=== PATIENT | female | born 1955 | race Caucasian/White ===

== ENCOUNTER 2019-12-06 12:20 | Observation (INO) | payer SELFPAY ==
[~2019-12-06] VITALS: Ht 175.3 cm; Wt 74.8 kg
[~2019-12-06 12:20] MED LIST: LISINOPRIL20 MG PO
[2019-12-06 12:51] LABS: BASOPHILS % 0.5 % (0.0-1.0); EOSINOPHILS # (AUTO) 0.1 (0.0-0.4); EOSINOPHILS % 0.7 % (0.0-6.0); HEMATOCRIT 40.2 % (34.2-44.1); HEMOGLOBIN 13.6 g/dL (12.0-16.0); LYMPHOCYTES # (AUTO) 1.6 (1.0-3.2); LYMPHOCYTES % 18.6 % (18.0-39.1); MEAN CORPUSCULAR HEMOGLOBIN 29.3 pg (28-32); MEAN CORPUSCULAR HGB CONC 33.8 g/dL (31-35); MEAN CORPUSCULAR VOLUME 86.6 fL (81-99); MONOCYTES # (AUTO) 0.6 (0.2-0.8); MONOCYTES % 7.2 % (4.4-11.3); NEUTROPHILS # (AUTO) 6.2 (2.1-6.9); NEUTROPHILS % 72.6 % (38.7-80.0); PLATELET COUNT 268 x10e3/uL (140-360); RED BLOOD COUNT 4.64 x10e6/uL (3.6-5.1); RED CELL DISTRIBUTION WIDTH 12.1 % (11.7-14.4)
--- OUTSIDE RECORDS SUMMARY | 2019-12-06 13:00 | XMS REPORT | Continuity of Care Document ---
Author Author [facility] t Organization [facility] Address [address] [place]. [address] [place] [id number] Phone Unavailable Care Team Providers Care Field Service Engineer Name Role Phone Jacky LOZANO Attphys Unavailable Problems This patient has no known problems. Allergies, Adverse Reactions, Alerts This patient has no known allergies or adverse reactions. Medications This patient has no known medications. Procedures This patient has no known procedures. Results Test Description Test Time Test Comments Results Result Comments Source CT BRAIN WO [address] [address] Patient Name: EFE DEE MR #: [id number] : 1955 Age/Sex: 61/F Req #: [id number] Adm Physician: Ordered by: YUE LOZANO MD Report #: [id number] Location: CT Room/Bed: Procedure: [id number] CT/CT BRAIN WO Exam Date: 02/04/17 Exam Time: 1455 REPORT STATUS: Signed History: Dizziness and giddiness Comparison studies: None Technique: Axial images were obtained from the skull base to the vertex. Coronal and sagittal reconstructions obtained from the axial data. Findings: Scalp/skull: No abnormalities. No fractures, blastic or lytic lesions. Extra-axial spaces: No masses. No fluid collections. Brain sulci: Appropriate for age. Ventricles: Normal in size and configu ration. No hydrocephalus. Parenchyma: No abnormal densities. No masses, hemorrhage, acute or chronic cortical vascular insults. Sellar/suprasellar region: No abnormalities Craniocervical junction: Patent foramen magnum. No Chiari one malformation. IMPRESSION: No abnormalities. Signed by: Dr. Steven Jackson M.D. on 02/04/2017 5:27 PM Dictated By: STEVEN JACKSON MD, MD 26 Transcribed By: TUCKER on 02/04/171726 COPY TO: YUE LOZANO MD
[2019-12-06 13:01] LABS: INR 0.84; PROTHROMBIN TIME 11.9 seconds (11.9-14.5)
[2019-12-06 13:10] LABS: ALANINE AMINOTRANSFERASE 23 IU/L (0-55); ALBUMIN 4.5 g/dL (3.5-5.0); ALBUMIN/GLOBULIN RATIO 1.6 (0.8-2.0); ALKALINE PHOSPHATASE 84 IU/L (40-150); ANION GAP 14.5 mmol/L (8-16); BLOOD UREA NITROGEN 15 mg/dL (7-26); BUN/CREATININE RATIO 17 (6-25); CALCIUM 9.1 mg/dL (8.4-10.2); CARBON DIOXIDE 24 mmol/L (22-29); CHLORIDE 107 mmol/L (98-107); CREATININE, SERUM 0.89 mg/dL (0.57-1.11); EST GLOMERULAR FILTRATION RATE > 60 ML/MIN (60-); GLUCOSE 98 mg/dL (74-118); POTASSIUM 3.5 mmol/L (3.5-5.1); SODIUM 142 mmol/L (136-145)
--- NOTE | 2019-12-06 13:14 | Emergency Department Note ---
History of Present Illnes History of Present Illness Chief Complaint: Neurological History of Present Illness This is a 64 year old female Chief Complaint Comment 64 y/o female presents to ED via EMS for sudden onset of short term memory loss @ approx 1000. Pt asking the same 5 questions repeatedly, cannot remember date, month, insurance. Pt moving all extremities, no neuro deficits except short term memory loss. Can remember name, , and family members. 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 Any updates have been documented here. Past Medical History Recent Fever: No Clinical Suspicion of Infectio: No New/Unexplained Change in Ment: Yes Other Medical History: does not remember medical hx Other Surgery: does not remember surgical Other Last Tetanus: UNK Review of Systems Review of Systems Constitutional: Reports no symptoms EENTM: Reports no symptoms Cardiovascular: Reports no symptoms Respiratory: Reports no symptoms Gastrointestinal: Reports no symptoms Genitourinary: Reports no symptoms Musculoskeletal: Reports no symptoms Integumentary: Reports no symptoms Neurological: Reports as per HPI, Reports other (Memory loss) Psychological: Reports no symptoms Endocrine: Reports no symptoms Hematological/Lymphatic: Reports no symptoms Physical Exam Related Data Allergies: Coded Allergies: No Known Allergies (Verified , 11/30/09) Triage Vital Signs Vital Signs Date Time Temp Pulse Resp B/P (MAP) Pulse Ox O2 Delivery O2 Flow Rate FiO2 12/06/19 12:32 98.5 67 18 183/92 100 Room Air Vital signs reviewed: Yes Physical Exam CONSTITUTIONAL Constitutional: Present well-developed, Present well-nourished HENT HENT: Present normocephalic, Present atraumatic, Present oropharynx clear/moist, Present nose normal HENT L/R: Present left ext ear normal, Present right ext ear normal EYES Eyes: Reports PERRL, Reports conjunctivae normal NECK Neck: Present ROM normal PULMONARY Pulmonary: Present effort normal, Present breath sounds normal CARDIOVASCULAR Cardiovascular: Present regular rhythm, Present heart sounds normal, Present capillary refill normal, Present normal rate GASTROINTESTINAL Abdominal: Present soft, Present nontender, Present bowel sounds normal GENITOURINARY Genitourinary: Present exam deferred SKIN Skin: Present warm, Present dry MUSCULOSKELETAL Musculoskeletal: Present ROM normal NEUROLOGICAL Neurological: Present alert, Present oriented x 3, Present no gross motor or sensory deficits; Absent cranial nerve deficit, Absent abnormal gait PSYCHOLOGICAL Psychological: Present mood/affect normal, Present judgement normal Results Laboratory Result Diagram: 12/06/19 1241 12/06/19 1241 Laboratory Laboratory Tests Test 12/06/19 12:41 White Blood Count 8.50 x10e3/uL (4.8-10.8) Red Blood Count 4.64 x10e6/uL (3.6-5.1) Hemoglobin 13.6 g/dL (12.0-16.0) Hematocrit 40.2 % (34.2-44.1) Mean Corpuscular Volume 86.6 fL (81-99) Mean Corpuscular Hemoglobin 29.3 pg (28-32) Mean Corpuscular Hemoglobin Concent 33.8 g/dL (31-35) Red Cell Distribution Width 12.1 % (11.7-14.4) Platelet Count 268 x10e3/uL (140-360) Neutrophils (%) (Auto) 72.6 % (38.7-80.0) Lymphocytes (%) (Auto) 18.6 % (18.0-39.1) Monocytes (%) (Auto) 7.2 % (4.4-11.3) Eosinophils (%) (Auto) 0.7 % (0.0-6.0) Basophils (%) (Auto) 0.5 % (0.0-1.0) Neutrophils # (Auto) 6.2 (2.1-6.9) Lymphocytes # (Auto) 1.6 (1.0-3.2) Monocytes # (Auto) 0.6 (0.2-0.8) Eosinophils # (Auto) 0.1 (0.0-0.4) Basophils # (Auto) 0.0 (0.0-0.1) Absolute Immature Granulocyte (auto 0.03 x10e3/uL (0-0.1) Prothrombin Time 11.9 seconds (11.9-14.5) Prothromb Time International Ratio 0.84 Sodium Level 142 mmol/L (136-145) Potassium Level 3.5 mmol/L (3.5-5.1) Chloride Level 107 mmol/L (98-107) Carbon Dioxide Level 24 mmol/L (22-29) Anion Gap 14.5 mmol/L (8-16) Blood Urea Nitrogen 15 mg/dL (7-26) Creatinine 0.89 mg/dL (0.57-1.11) Estimat Glomerular Filtration Rate > 60 ML/MIN (60-) BUN/Creatinine Ratio 17 (6-25) Glucose Level 98 mg/dL (74-118) Calcium Level 9.1 mg/dL (8.4-10.2) Total Bilirubin 0.5 mg/dL (0.2-1.2) Aspartate Amino Transf (AST/SGOT) 19 IU/L (5-34) Alanine Aminotransferase (ALT/SGPT) 23 IU/L (0-55) Alkaline Phosphatase 84 IU/L (40-150) Total Protein 7.4 g/dL (6.5-8.1) Albumin 4.5 g/dL (3.5-5.0) Globulin 2.9 g/dL (2.3-3.5) Albumin/Globulin Ratio 1.6 (0.8-2.0) Lab results reviewed: Yes Imaging Imaging results reviewed: Yes Diagnostics Tests Diagnostic test(s) reviewed: Yes Procedures 12 Lead ECG Interpretation ECG Interpretation : Professor Of Forestry: Interpreted by ED physician Date: Dec 06, 2019 Rhythm: sinus rhythm Rate: normal QRS axis: normal ST segments normal: Yes T waves normal: Yes Clinical Impression: non-specific ECG Assessment & Plan Medical Decision Making MDM 64-year-old female presents for impaired short-term memory. Patient shows perseveration is able to carry a conversation and is alert and oriented 3. She is not really anything that happened today or any recent events. Examination is otherwise unremarkable, no focal neurologic deficits, cranial nerves II through XII are intact. Initial differential scenario for stroke versus intoxication among others. Patient not a tPA candidate as NIH stroke scale is 1. Discussed patient with Dr. Huffman who has agreed to admission. Reassessment Reassessment time: 13:39 Reassessment unchanged Assessment & Plan Final Impression: (1) Memory loss (2) Stroke-like symptoms Depart Disposition: ADMITTED Last Vital Signs Date Time Temp Pulse Resp B/P (MAP) Pulse Ox O2 Delivery O2 Flow Rate FiO2 12/06/19 12:59 75 19 170/92 100 Room Air 12/06/19 12:32 98.5 Home Meds Reported Medications Lisinopril (PRINAVIL / ZESTRIL) 20 Mg Tablet, 20 MG PO DAILY 09/07/13 JENA DASH MD Dec 06, 2019 13:14
--- NOTE | 2019-12-06 13:27 | Diagnostic Imaging Report ---
EXAMINATION: Head CT HISTORY: 64-year-old female with right hand numbness, short-term memory loss COMPARISON: None. TECHNIQUE: Helical axial images of the head were obtained. Dose modulation, iterative reconstruction, and/or weight based adjustment of the mA/kV was utilized to reduce the radiation dose to as low as reasonably achievable. FINDINGS: Parenchyma: 1. No abnormal densities. 2. No mass or hemorrhage. No CT evidence of acute territorial vascular insult. Extra-axial spaces:No abnormal density. No extra-axial fluid collections Brain volume: Normal for age. Ventricles: No hydrocephalus or displacement. Arteries: No density suggestive of thrombus. Dural sinuses: No abnormal density. Foramen magnum: No mass, Chiari malformation, or basilar invagination. Sella: No obvious mass. Paranasal/mastoid sinuses: Imaged portions unremarkable. Skull/Scalp: No lytic or blastic lesions. No fractures. IMPRESSION: No intracranial abnormalities, particularly no hemorrhage or CT evidence of acute cortical infarct. Signed by: Dr. Camila Mari M.D. on 12/06/2019 1:24 PM
--- NOTE | 2019-12-06 13:39 | NUR ---
Pt continues to ask the same 7-10 questions repeatedly. Asking where her is, her mother, son, and father? Pt is tearful and appears very scared. This RN wrote answers to main questions on dry erase board, date and location of family members.
[2019-12-06] MEDS ORDERED: ASPIRIN 325 MG TAB PO ONE (14:00)
--- NOTE | 2019-12-06 15:23 | NUR ---
Son at bedside, brought in home meds to review. Pt can't remember her medical hx.
[2019-12-06 16:25] VITALS: BP 153/88
--- NOTE | 2019-12-06 16:25 | NUR ---
PHONE REPORT RECEIVED FROM LATRICE WATKINS, ER NURSE. PATIENT WAS TRANSPORTED PER WHEELCHAIR TO UNIT. PT AMBULATORY TO BED IN NO ACUTE DISTRESS WEARING TELEMETRY BOX #6. PATIENT STATES "I DO NOT REMEMBER WHAT HAPPENED AND I DO NOT KNOW HOW I GOT HERE". PATIENT PROVIDED MEDICATION FOR RECONCILIATION. PATIENT WAS EDUCATED ON FALL RISK PRECAUTIONS AND VERBALIZED UNDERSTANDING. CALL LIGHT AND BELONGINGS PLACED NEARBY. BED ALARM INITIATED. WILL CONTINUE TO MONITOR.
[2019-12-06 16:43] VITALS: BP 153/88
[2019-12-06] MEDS ORDERED: ALPRAZOLAM0.5 MG PO (16:54)
--- NOTE | 2019-12-06 17:00 | NUR ---
PATIENT IS UNABLE TO REMEMBER MEDICAL/SURGICAL HISTORY. PATIENT'S , CORNELIO DEE'S CONTACT PHONE NUMBER IS [phone]. I ATTEMPTED TO CONTACT SPOUSE TO COMPLETE PATIENT'S HISTORY. THERE WAS NO ANSWER, LEFT VM.
[2019-12-06 17:20] LABS: CLARITY,URINE CLEAR (CLEAR); COLOR,URINE YELLOW (YELLOW); LEUKOCYTE ESTERASE ,URINE NEGATIVE (NEGATIVE); NITRITE,URINE NEGATIVE (NEGATIVE)
[2019-12-06 17:21] LABS: AMPHETAMINES SCREEN,URINE NEGATIVE (NEGATIVE); BENZODIAZEPINES SCREEN,URINE NEGATIVE (NEGATIVE); BILIRUBIN,URINE NEGATIVE (NEGATIVE); KETONES,URINE NEGATIVE (NEGATIVE); PHENCYCLIDINE SCREEN,URINE NEGATIVE (NEGATIVE); PROTEIN,URINE DIPSTICK NEGATIVE (NEGATIVE); URINE UROBILINOGEN 0.2 mg/dL (0.2 - 1)
[2019-12-06 17:31] LABS: EPITHELIAL CELLS,URINE RARE /LPF
[2019-12-06] MEDS ORDERED: AMLODIPINE BESYL5 MG PO (17:55)
[2019-12-06] MEDS ORDERED: TRAZODONE HCL50 MG PO (17:56)
[2019-12-06] MEDS ORDERED: LOVASTATIN40 MG (18:02)
[2019-12-06] MEDS ORDERED: EFFEXOR XR 3737.5 MG (18:02)
[2019-12-06] MEDS ORDERED: VITAMIN D250 MCG PO (18:02)
[2019-12-06] MEDS ORDERED: HYDROCHLOROTH12.5 MG (18:03)
[2019-12-06 19:35] VITALS: BP 154/88
[2019-12-06 19:36] VITALS: BP 154/88
[2019-12-06 20:00] VITALS: BP 154/88
--- NOTE | 2019-12-06 20:00 | NUR ---
dysphagia screening done, 3 oz water test done. patient has no trouble swallowing. ok to give medications
--- NOTE | 2019-12-06 20:16 | NUR ---
called Dr Terrell MD ok to continue all home meds.
[2019-12-06] MEDS ORDERED: TRAZODONE HCL 50 MG TAB PO PRN (20:30)
[2019-12-06] MEDS ORDERED: ALPRAZOLAM 0.5 MG TAB PO PRN (20:30)
[2019-12-06 22:10] VITALS: BP 154/88
[2019-12-07] VITALS: BP 164/92
[2019-12-07 04:00] VITALS: BP 141/84
[2019-12-07 04:49] LABS: BASOPHILS # (AUTO) 0.1 (0.0-0.1); BASOPHILS % 0.4 % (0.0-1.0); EOSINOPHILS % 0.3 % (0.0-6.0); HEMATOCRIT 38.7 % (34.2-44.1); HEMOGLOBIN 13.1 g/dL (12.0-16.0); LYMPHOCYTES # (AUTO) 2.6 (1.0-3.2); LYMPHOCYTES % 22.7 % (18.0-39.1); MEAN CORPUSCULAR HEMOGLOBIN 30.1 pg (28-32); MEAN CORPUSCULAR HGB CONC 33.9 g/dL (31-35); MONOCYTES # (AUTO) 0.9 (0.2-0.8); MONOCYTES % 7.4 % (4.4-11.3); NEUTROPHILS # (AUTO) 7.9 (2.1-6.9); NEUTROPHILS % 68.9 % (38.7-80.0); PLATELET COUNT 248 x10e3/uL (140-360); RED BLOOD COUNT 4.35 x10e6/uL (3.6-5.1); RED CELL DISTRIBUTION WIDTH 12.3 % (11.7-14.4)
[2019-12-07 05:10] LABS: ANION GAP 15.7 mmol/L (8-16); BLOOD UREA NITROGEN 12 mg/dL (7-26); BUN/CREATININE RATIO 14 (6-25); CARBON DIOXIDE 23 mmol/L (22-29); CHLORIDE 107 mmol/L (98-107); CREATININE, SERUM 0.83 mg/dL (0.57-1.11); EST GLOMERULAR FILTRATION RATE > 60 ML/MIN (60-); GLUCOSE 90 mg/dL (74-118); POTASSIUM 3.7 mmol/L (3.5-5.1); SODIUM 142 mmol/L (136-145)
--- NOTE | 2019-12-07 06:50 | NUR ---
SBAR BEDSIDE REPORT RECEIVED FROM MEDARDO RN, PM SHIFT. PATIENT FOUND LYING IN BED COMPLAINING OF A HEADACHE. PM SHIFT NURSE MEDICATED PER MAY. PATIENT STILL DEMONSTRATES SHORT TERM MEMORY LOSS. PATIENT WAS REASSURED AND REORIENTED TO TIME, LOCATION, SITUATION. PATIENT ENCOURAGED TO RELAX WITH SOFT MUSIC THERAPY. PT WAS EDUCATED ON FALL RISK PRECAUTIONS AND VERBALIZED UNDERSTANDING. CALL LIGHT AND BELONGINGS PLACED NEARBY. WILL CONTINUE TO MONITOR.
[2019-12-07 07:17] LABS: CHOL/HDL RATIO 3.7 (3.0-3.6)
[2019-12-07 07:36] LABS: THYROID STIMULATING HORMONE 1.36 uIU/mL (0.350-4.940)
[2019-12-07 08:03] VITALS: BP 148/89
[2019-12-07 09:00] VITALS: BP 148/89
[2019-12-07] MEDS ORDERED: AMLODIPINE BESYLATE 5 MG TAB PO SCH (09:00)
[2019-12-07] MEDS: VENLAFAXINE HCL 75 MG CAPCR PO SCH (09:00)
[2019-12-07] MEDS ORDERED: HYDROCHLOROTHIAZIDE 25 MG TAB PO SCH ×2 (09:00)
[2019-12-07] MEDS ORDERED: SIMVASTATIN 20 MG TAB PO SCH (09:00)
[2019-12-07] MEDS ORDERED: LISINOPRIL 20 MG TAB PO SCH (09:00)
[2019-12-07] MEDS ORDERED: VENLAFAXINE HCL 37.5MG XR CAP PO SCH (09:00)
--- NOTE | 2019-12-07 09:20 | NUR ---
Front Maker Lockstitch referred by RN. Pt unavailable at this time. Pt on phone. I will follow up as able. JACINTA Campos Spiritual Care Department O: [phone]
--- NOTE | 2019-12-07 09:29 | History and Physical ---
CHIEF COMPLAINT: The patient came into the hospital for amnesia, which was short term. HISTORY OF PRESENT ILLNESS: A 64-year-old female with a history of hypertension, history of hyperlipidemia, history of depression, history of chronic anxiety, and low back pain, was in her usual state of health until approximately at about 10:00 a.m. yesterday. The patient was talking on the phone with a person and the patient's mother noticed that the patient did not remember any details of the conversation and/or prior events couple of minutes ago. The patient's family members called the office and was brought to the emergency room. The patient's CT scan was negative, but kept in the hospital for amnesia and also possible neurological deficits and needs a neurological evaluation. The patient was started on venlafaxine 75 mg about a week ago prior to this event, and the patient also suffers extreme depression. PAST MEDICAL HISTORY: As mentioned above, hypertension, hyperlipidemia, anxiety. FAMILY HISTORY: Positive for diabetes and hypertension. SOCIAL HISTORY: No EtOH. No IV drug abuse. She is very physically active with her horses and also lives with mother, who lives with her. REVIEW OF SYSTEMS: No chest pain. No shortness of breath. No nausea. No vomiting. No diarrhea. No constipation. No rectal bleeding. No hematochezia. No hematemesis. No blurry vision. No palpitations. No bleeding. No bleeding diathesis. No diplopia. No diaphoresis. Only symptom remains to be amnesia. PHYSICAL EXAMINATION: GENERAL: The patient is alert and oriented x3. VITAL SIGNS: Today, Temperature 98.7, pulse of 56, respirations of 18, blood pressure is 164/92, pulse oximetry of 99% on room air. HEENT: Normocephalic, atraumatic. Pupils are reactive. The patient is very alert and oriented x3 at this time. CVS: S1 and S2 normal. Regular rate and rhythm. ABDOMEN: Soft, nontender, nondistended. EXTREMITIES: No clubbing. No cyanosis. No edema. NEUROLOGICAL: Short-term memory according to the patient, which is 2 days passed or 1 week passed. IMPRESSION: 1. The patient could not remember anything or does not remember coming to my office and starting on venlafaxine. 2. Hypertension. 3. Hyperlipidemia. PLAN: Check stat lipid level today. MRI will be ordered. Echocardiogram will be ordered. Carotid Doppler will be ordered too. Imaging studies from the ED shows the brain CT with no acute intracranial abnormalities. Vitamin B12 will be ordered too. Further recommendation per clinical course and also depending on neurologic evaluation by Dr. Lange. MD MEGHANA MataJ/MODL /[id number]
--- NOTE | 2019-12-07 09:47 | NUR ---
Pt unavailable at this time. Pt having EKG. Will follow up as able. JACINTA Cadenalain Spiritual Care Department O: [phone]
--- NOTE | 2019-12-07 10:55 | NUR ---
PATIENT OFF THE FLOOR FOR MRA OF BRAIN; TELEMETRY BOX REMOVED TEMPORARILY. VICKI IN MONITOR ROOM MADE AWARE
--- NOTE | 2019-12-07 11:20 | NUR ---
PATIENT BACK TO FLOOR FROM BRAIN MRA Addendum: 12/07/19 at 1130 by Olga Lutz RN ADD: TELEMETRY REAPPLIED AND CONFIRMED WITH VICKI FOSTER
[2019-12-07 11:51] VITALS: BP 163/81
--- NOTE | 2019-12-07 12:26 | Diagnostic Imaging Report ---
Examination: MRA HEAD WO CONTRAST History: ^amnesia Comparison studies: None Technique: 3-D [id number] MR angiogram of the intracranial circulation was obtained. MIP images of the arteries were isolated into anterior and posterior intracranial circulations, 180 degree projections. Sagittal and coronal MPR images, and axial source images are available for evaluation. Findings: Internal carotid arteries: Patent. Anterior cerebral arteries: Patent A1 and A2 segments. Middle cerebral arteries: Patent M1 and M2 segments. Vertebrobasilar circulation: Patent. Posterior cerebral arteries: Patent P1 and P2 segments. Anatomical variants: Anterior communicating arteries: Patent Posterior communicating arteries: Not visualized bilaterally. Vertebral arteries:Codominant. IMPRESSION: No intracranial arterial stenosis or occlusion or vascular malformation. Signed by: Dr. Treva Bedoya M.D. on 12/07/2019 12:23 PM
--- NOTE | 2019-12-07 15:49 | NUR ---
TOLD TO CALL WITH INSURANCE INFORMATION TO AVOID GETTING THE BILL, HE STATES HE WILL.
[2019-12-07 15:57] VITALS: BP 144/93
--- NOTE | 2019-12-07 17:15 | NUR ---
PATIENT DISCHARGED HOME VIA PRIVATE VEHICLE. PERIPHERAL IV DISCONTINUED; CATHETER TIP INTACT WITHOUT RESISTANCE. DRY DRESSING APPLIED. TELEMETRY BOX REMOVED AND SENT BACK TO MONITOR ROOM. MONITOR ROOM MADE AWARE. PATIENT RECEIVED TRANSITION CARE FOLDER WITH WRITTEN DISCHARGE SUMMARY AND FOLLOW UP APPOINTMENTS. PATIENT VERBALIZED UNDERSTANDING.
--- NOTE | 2019-12-07 23:02 | Consultation ---
DATE OF CONSULTATION: Neurology Consultation REASON FOR CONSULTATION: I am seeing the patient for transient global amnesia. HISTORY OF PRESENT ILLNESS: The patient is a 64-year-old female, who has a history of anxiety, who presents with basically classic transient global amnesia, repetitive questioning. She reports short-term memory, started around 10 o'clock yesterday, did not seem to have gotten worse, but did improve after about 24 hours, repeated for questions over and over again with no focal neurological deficits. The patient does have history of depression and recently lost a horse, which is a at this time without any focal neurologic deficits. PAST MEDICAL HISTORY: Includes anxiety and depression, hyperlipidemia, hypertension. SOCIAL HISTORY: No tobacco, alcohol, or drugs. She is physically active and she recently lost one of her horses, that has caused great emotional strain. REVIEW OF SYSTEMS: Review of systems is entirely negative. PHYSICAL EXAMINATION: GENERAL: She is alert and oriented x3, responsive. VITAL SIGNS: Temperature is 98.7, blood pressure is 160/72, her heart rate is 76 and regular. NEUROLOGIC: Extraocular muscles intact. Face symmetric. Tongue is midline. Speech is clear. Short-term memory recall is within normal limits. No underlying evidence of disorientation at this time. 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 She does not actually remember coming to the hospital, so she does have focal amnesia present. ASSESSMENT AND PLAN: Ms. Thompson comes to my attention for transient global amnesia, now resolving. The patient has classic presentation of such. There is no underlying reason to initiate antiepileptic drugs at this time and given that the symptoms resolved, I explained the risk of recurrent events in the future is low, but possible while not probable, and we recommended continuing care at home and follow up as an outpatient. MD WILD HINDS/JIL /[id number]
== END 2019-12-07 17:05 | disposition home or self-care (01) ==
LOC: ER 12:30 → ERHOLD 14:33 → MED/SURG2 16:25
PROVIDERS: ADMIT Family Medicine; ATTEND Family Medicine
DX: G45.4 Transient global amnesia (principal); E78.5 Hyperlipidemia, unspecified; I10 Essential (primary) hypertension; F41.9 Anxiety disorder, unspecified; F32.9 Major depressive disorder, single episode, unspecified; Z73.3 Stress, not elsewhere classified; Z11.59 Encounter for screening for other viral diseases
CPT/HCPCS: 36415 ×2; 70450; 70544; 80048; 80053; 80061; 80307; 81001; 82607; 84443; 84484; 85025 ×2; 85610; 93005; 93306; 93880; 99284; G0378 ×2; U0002